=== PATIENT | male | born 1965 | race Caucasian/White ===

== ENCOUNTER 2017-04-11 08:24 | Emergency (ER) | payer SELFPAY ==
[~2017-04-11] VITALS: Ht 175.3 cm; Wt 127.3 kg
[2017-04-11 09:23] LABS: BASO # 0.1 (0.0-0.2); BASO % 1.2 % (0.0-2.0); EOS # 0.2 (0.0-0.7); EOS % 2.9 % (0-4.0); GRAN # 3.7 (1.4-6.5); GRAN % 53.5 % (42.2-75.2); HEMATOCRIT 43.5 % (42.0-52.0); HEMOGLOBIN 14.6 g/dl (13.5-18.0); LYMPH # 2.3 (1.2-3.4); LYMPH % 33.3 % (20.0-51.0); MEAN CELL VOLUME 95 fl (80.0-100.0); MEAN CORPUSCULAR HEMOGLOBIN 32 pg (27.0-31.0); MEAN CORPUSCULAR HGB CONC 34 g/dl (33.0-37.0); MEAN PLATELET VOLUME 10.9 fl (7.4-10.4); MONO # 0.6 (0.1-0.6); PLATELET COUNT 224 K/mm3 (130-400); RED BLOOD COUNT 4.58 M/mm3 (4.20-5.60); WHITE BLOOD COUNT 6.9 K/mm3 (4.8-10.8)
[2017-04-11 09:41] LABS: ANION GAP 7 mmol/L (7-16); BLOOD UREA NITROGEN 15 mg/dL (9-20); C-REACTIVE PROTEIN 1.6 mg/dL (0.0-0.9); CALCIUM 8.2 mg/dL (8.4-10.2); CARBON DIOXIDE 27 mmol/L (22-30); CHLORIDE 102 mmol/L (98-107); CREATININE, serum 0.72 mg/dL (0.66-1.25); GLUCOSE 96 mg/dL (74-106); POTASSIUM 3.8 mmol/L (3.4-5.0); SODIUM 136 mmol/L (137-145)
[2017-04-11 09:44] LABS: ERYTHROCYTE SEDIMENTATION RATE 2 mm/hr (0-30)
[2017-04-11 09:51] LABS: TROPONIN-I < 0.012 ng/mL (0.000-0.034)
[2017-04-11 10:24] VITALS: BP 127/87; PULSE 70; TEMP 98.4
== END 2017-04-11 10:27 | disposition home or self-care (01) ==
LOC: COL.ER 08:24
PROVIDERS: Emergency Medicine
DX: R07.9 Chest pain, unspecified (principal); R20.9 Unspecified disturbances of skin sensation; R51 Headache; F17.210 Nicotine dependence, cigarettes, uncomplicated